=== PATIENT | female | born 1990 | race African-American/Black ===

== ENCOUNTER 2016-07-09 22:11 | Emergency (ER) | payer MEDICAID ==
[~2016-07-09] VITALS: Ht 170.2 cm; Wt 59.0 kg
[2016-07-09 22:35] VITALS: BP 122/70
== END 2016-07-10 04:16 | disposition left against medical advice (07) ==
LOC: ER 22:21
DX: R10.30 Lower abdominal pain, unspecified (principal); Z53.21 Procedure and treatment not carried out due to patient leaving prior to being seen by health care provider